=== PATIENT | female | born 1995 | race Two or more races ===

== ENCOUNTER → 2019-11-02 | Outpatient (CLI) | payer OTHER | END | disposition home or self-care (01) | LOC: PRENATAL 08:52 | DX: O99.89 Other specified diseases and conditions complicating pregnancy, childbirth and the puerperium (principal); O35.3XX1 Maternal care for (suspected) damage to fetus from viral disease in mother, fetus 1 ==

== ENCOUNTER → 2020-01-18 | Outpatient (CLI) | payer OTHER | END | disposition home or self-care (01) | LOC: PRENATAL 08:30 | DX: O26.843 Uterine size-date discrepancy, third trimester (principal); O99.213 Obesity complicating pregnancy, third trimester ==

== ENCOUNTER 2020-03-08 13:28 | Inpatient (IN) | payer OTHER ==
[~2020-03-08] VITALS: Ht 160 cm; Wt 81.6 kg
[2020-03-21] MEDS ORDERED: PRENATAL CAPLE1 EAC1 PO (09:54)
[2020-03-21] MEDS ORDERED: FAMOTIDINE40 MG PO (14:53)
[2020-03-21] MEDS ORDERED: MACROBID 100 M100 MG PO (14:54)
== END 2020-03-24 14:54 | disposition home or self-care (01) | DRG 807 ==
LOC: LDR 03-21 09:09 → SURG-SUITE 03-21 09:09 → LDR 03-28 08:15 → OB/GYN 03-28 08:15
PROVIDERS: ADMIT Obstetrics & Gynecology
PROC: 10E0XZZ Delivery of Products of Conception, External Approach (ICD-10-PCS; principal; 2020-03-22)
PROC: 3E033VJ Introduction of Other Hormone into Peripheral Vein, Percutaneous Approach (ICD-10-PCS; 2020-03-22)
PROC: 4A1HXFZ Monitoring of Products of Conception, Cardiac Rhythm, External Approach (ICD-10-PCS; 2020-03-22)
DX: O70.1 Second degree perineal laceration during delivery (principal); Z37.0 Single live birth; Z3A.39 39 weeks gestation of pregnancy

== ENCOUNTER 2025-10-02 13:52 | Emergency (ER) | payer OTHER ==
[~2025-10-02] VITALS: Ht 160 cm; Wt 69.9 kg
[~2025-10-02 13:52] MED LIST: FAMOTIDINE40 MG PO; MACROBID 100 M100 MG PO; PRENATAL CAPLE1 EAC1 PO
[2025-10-02] MEDS ORDERED: ACETAMINOPHEN 500 MG GEL..CAP PO ONE (15:30)
[2025-10-02] MEDS ORDERED: 0.9 % SODIUM CHLORIDE 1,000 ML IV SCH (15:30)
[2025-10-02] MEDS ORDERED: FAMOTIDINE/PF 20 MG in 0.9 % SODIUM CHLORIDE 8 ML IV PUSH ONE (15:30)
[2025-10-02 16:13] LABS: BASO % 0.5 % (0.1-1.2); EOS # 0.07 (0.04-0.54); EOS % 0.7 % (0.7-7.0); LYMPH # 2.18 (1.18-3.74); LYMPH % 22.0 % (19.3-53.1); MEAN PLATELET VOLUME 12.40 fl (9.4-12.4); MONO # 0.76 (0.24-0.82); MONO % 7.7 % (4.7-12.5); NEUT # 6.82 (1.56-6.13); NEUT % 68.7 % (34.0-71.1); RED CELL DISTRIBUTION WIDTH 12.1 % (11.6-14.4)
[2025-10-02 16:34] LABS: INR 0.99
[2025-10-02 16:59] LABS: ALT/SGPT 39.0 U/L (12-78); AST/SGOT 20.0 U/L (15-37); BILIRUBIN TOTAL 0.41 mg/dL (0.3-1.2); BUN CREA RATIO 16.0 (7.0-25.0); CREATININE SERUM 0.73 mg/dL (0.55-1.02); GFR 92.99; GLOBULINA 3.5 G/DL (2.4-3.5); GLUCOSE FASTING 105.0 mg/dL (65-100); OSMOLALITY SERUM 283.0 MOSM/KG (275-295)
[2025-10-02 17:07] LABS: URINE APPEARANCE Clear; URINE BILIRRUBIN Negative (NEGATIVE); URINE BLOOD Negative; URINE COLOR Yellow; URINE GLUCOSE Negative (NEGATIVE); URINE KETONE 15 (NEGATIVE); URINE LEUKOCYTE Trace; URINE NITRATE Negative; URINE PROTEIN Negative (NEGATIVE); URINE UROBILINOGEN 1.0 E.U./dl
[2025-10-02 17:11] LABS: URINE BACTERIA 625.1 uL (0.0-1933); URINE EPITHELIAL CELLS 68.5 uL (0.0-38.8); URINE RBC 5.8 uL (0.0-20.8); URINE WBC 7.6 uL (0.0-23.2)
[2025-10-02 17:35] LABS: TYPE CELLS RENAL TUBULAR; URINE CAST 0.14 uL (0.0-1.40)
== END 2025-10-02 19:12 | disposition home or self-care (01) ==
LOC: ER 13:52
PROVIDERS: General Practice
DX: O26.891 Other specified pregnancy related conditions, first trimester (principal); Z3A.01 Less than 8 weeks gestation of pregnancy; Z88.8 Allergy status to other drugs, medicaments and biological substances